=== PATIENT | female | born 1990 | race Caucasian/White ===

== ENCOUNTER → 2022-06-18 | Day surgery (SDC) | payer OTHER ==
[~2022-06-18] VITALS: Ht 162.6 cm; Wt 72.6 kg
[~2022-06-18] MED LIST: ALLERGY RELIEF5 MG PO; CLONIDINE HCL0.1 MG PO; DICLOFENAC SODI75 MG PO; EMGALITY120 MG/1 M SC; FAMOTIDINE40 MG PO; HYDROCODON-ACE1 EAC2 PO; KEPPRA750 MG PO; NEURONTIN300 MG PO; PRILOSEC20 MG PO; TRILEPTAL150 MG PO; VENTOLIN HFA IN18 GM INH; ZANAFLEX4 M1 PO; ZOMIG5 MG PO
[2022-06-18 12:49] LABS: EOSINOPHIL 2.6 % (0-5); LYMPHOCYTE 44.2 % (15-48); MCH 34.3 pg (25.0-31.0); MCHC 35.7 g/dL (32.0-36.0); MCV 96.1 fL (78.0-100.0); MONOCYTE 7.5 % (0-12); MPV 8.3 fL (6.0-9.5); NEUTROPHIL 44.4 % (41-80); NRBC 0; PLT 426 K/uL (150-400); RBC 4.37 M/uL (4.20-5.40); RDW 12.3 % (11.5-14.0); WBC 5.9 K/uL (4.0-10.5)
[2022-06-18 12:56] LABS: HCG (URINE) SCREEN NEGATIVE (NEGATIVE)
[2022-06-18 13:20] LABS: BUN/CREAT RATIO (CALC) 5.4 RATIO; CREATININE 0.56 mg/dL (0.51-0.95); POTASSIUM 3.7 mmol/L (3.5-5.1)
== END | disposition home or self-care (01) ==
LOC: FAS 12:09
PROVIDERS: Anesthesiology; Oral & Maxillofacial Surgery
DX: K02.9 Dental caries, unspecified (principal); K04.7 Periapical abscess without sinus; G40.909 Epilepsy, unspecified, not intractable, without status epilepticus; J45.909 Unspecified asthma, uncomplicated; F41.9 Anxiety disorder, unspecified; Z88.0 Allergy status to penicillin; Z88.1 Allergy status to other antibiotic agents; Z88.8 Allergy status to other drugs, medicaments and biological substances; Z79.899 Other long term (current) drug therapy
CPT/HCPCS: 36415; 80048; 84703; 85025; J1100; J1885; J2250; J2405; J2704; J3010; J7120